=== PATIENT | female | born 1940 | race Caucasian/White ===

== ENCOUNTER 2020-09-24 15:26 | Inpatient (IN) | payer MEDICARE ==
[~2020-09-24] VITALS: Ht 167.6 cm; Wt 70.7 kg
[~2020-09-24 15:26] MED LIST: ASPIRIN E.C. 8181 MG PO; CELEBREX 1100 MG/CAP PO; CELEBREX 200MG200 MG PO; EFFER-K10 MEQ PO; NORVASC 5MG5 MG/TAB PO; PRILOSEC 20MG20 MG PO; TYLENOL ARTHRI650 M1 PO; ZOCOR 20MG20 MG PO; [UNRECOGNIZED DRUG - CODE] PO
[2020-09-24 16:05] LABS: BASO % 0.2 % (0.0-2.0); EOS # 0.2 (0.0-0.7); EOS % 1.2 % (0-4.0); GRAN # 10.1 (1.4-6.5); GRAN % 81.6 % (42.2-75.2); HEMATOCRIT 39.9 % (37.0-47.0); HEMOGLOBIN 13.5 g/dl (12.5-16.0); LYMPH # 1.7 (1.2-3.4); LYMPH % 13.5 % (20.0-51.0); MEAN CELL VOLUME 90 fl (80.0-100.0); MEAN CORPUSCULAR HEMOGLOBIN 31 pg (27.0-31.0); MEAN CORPUSCULAR HGB CONC 34 g/dl (33.0-37.0); MEAN PLATELET VOLUME 8.9 fl (7.4-10.4); MONO # 0.4 (0.1-0.6); PLATELET COUNT 315 K/mm3 (130-400); RED BLOOD COUNT 4.43 M/mm3 (4.10-5.30); REDCELL DISTRIBUTION WIDTH-CV 12.4 % (11.5-14.5)
[2020-09-24 16:20] LABS: ALANINE AMINOTRANSFERASE 78 U/L (4-34); ALBUMIN 4.2 gm/dL (3.5-5.0); ALKALINE PHOSPHATASE 125 U/L (50-136); ANION GAP 8 mmol/L (7-16); AST,SGOT 242 U/L (15-37); BLOOD UREA NITROGEN 18 mg/dL (7-17); CALCIUM 9.2 mg/dL (8.4-10.2); CARBON DIOXIDE 26 mmol/L (22-30); CHLORIDE 98 mmol/L (98-107); GLUCOSE 152 mg/dL (74-106); SODIUM 132 mmol/L (137-145); TOTAL PROTEIN 7.2 gm/dL (6.4-8.2)
[2020-09-24 16:39] LABS: TROPONIN-I < 0.012 ng/mL (0.000-0.035)
[2020-09-24] MEDS ORDERED: HCTZ12.5TAB PO (17:51)
[2020-09-24 18:12] LABS: LIPASE 27998 U/L (23-300)
[2020-09-24] MEDS ORDERED: NORCO 325 MG-51 TAB PO (18:30)
--- NOTE | 2020-09-24 20:00 | NUR ---
PATIENT ADMITED INTO ROOM 325 FORM ER WITH SON AT BEDSIDE. PATIENT WAS HAVING LOTS OF ABD PAIN IN ER AND WAS GIVEN LOTS OF PAIN MEDS. PATIENT IS CURRENTLY ORIENTED X2 BUT DISPLAYS SOME CONFUSION/FORGETFULNESS WHICH SON REPORTS IS NOT HER BASELINE. PATIENT SEEMS RESTLESS. NO C/O PAIN OR NAUSEA AT THIS TIME. DURING ADMISSION PATIENT KEPT FEELING LIKE SHE NEEDED TO "GET UP". NURSING ATTEMPTED TO GET PATIENT INTO BEDSIDE CHAIR BUT PATIENT WAS TO WEAK AND DIZZY TO GET UP. REPOSITIONED BACK INTO BED TO COMFORT. IV FLUIDS INFUSING VIA PUMP INTO RIGHT AC IV. LEFT AC IV TO INT. HEAD TO TOE ASSESSMENT COMPLETE. SCD'S APPLIED TO BLE. TELE ALSO APPLIED. ORIENTED TO ROOM. CALL LIGHT IN REACH.
--- NOTE | 2020-09-24 21:00 | NUR ---
PATIENT INCREASINGLY RESTLESS AND IS HAVING PAIN HOWEVER PATIENT IS CONFUSED. GAVE PRN IV ATIVAN PER HOSPITALIST. SON AT BEDSIDE. PATIENT TRYING TO TAKE OFF CLOTHES & GET OUT OF BED. RN AT BEDSIDE.
--- NOTE | 2020-09-24 22:00 | NUR ---
PATIENT RESTED QUIETLY FOR AN HOUR AND IS NOW TRYING TO GET OUT OF BED AGAIN AND IS VERY AGGITATED & CONFUSED. HOSPITALIST NOTIFIED. PRN IV ATIVAN GIVEN. WILL MONITOR.
--- NOTE | 2020-09-24 23:00 | NUR ---
PATIENT LESS RESTLESS BUT C/O PAIN. GAVE PRN IV TORADOL. PATIENT REPOSITIONED TO COMFORT. PATIENT REFUSED WARM BLANKET SHE IS HOT. ROOM TEMP TURNED DOWN. BED ALARM STILL ON. CALL LIGHT IN REACH.
[2020-09-25] VITALS (221 sets, daily range): BP systolic 85–123; BP diastolic 45–69; PULSE 79–101; TEMP 97.5–99.2; O2SAT 83–96
--- NOTE | 2020-09-25 03:48 | NUR ---
PATIENT IS VERY RESTLESS AGAIN AND STATES SHE ISN'T COMFORTABLE. PATIENT REPOSITIONED UP IN BED WITH 2 RN'S TO COMFORT. BED ALARM ON.
[2020-09-25 08:11] LABS: HEMATOCRIT 42.2 % (37.0-47.0); MEAN CELL VOLUME 93 fl (80.0-100.0); MEAN CORPUSCULAR HEMOGLOBIN 31 pg (27.0-31.0); MEAN CORPUSCULAR HGB CONC 33 g/dl (33.0-37.0); MEAN PLATELET VOLUME 9.2 fl (7.4-10.4); RED BLOOD COUNT 4.54 M/mm3 (4.10-5.30); REDCELL DISTRIBUTION WIDTH-CV 13.2 % (11.5-14.5)
[2020-09-25 08:14] LABS: PLATELET COUNT 197 K/mm3 (130-400)
[2020-09-25 08:38] LABS: ALANINE AMINOTRANSFERASE 572 U/L (4-34); ALBUMIN 2.7 gm/dL (3.5-5.0); ALKALINE PHOSPHATASE 81 U/L (50-136); ANION GAP 6 mmol/L (7-16); AST,SGOT > 750 U/L (15-37); BLOOD UREA NITROGEN 19 mg/dL (7-17); CALCIUM 6.9 mg/dL (8.4-10.2); CARBON DIOXIDE 21 mmol/L (22-30); CHLORIDE 105 mmol/L (98-107); CREATININE, serum 1.07 (0.52-1.25); GLUCOSE 83 mg/dL (74-106); POTASSIUM 3.6 mmol/L (3.4-5.0); SODIUM 132 mmol/L (137-145); TOTAL PROTEIN 5.2 gm/dL (6.4-8.2)
[2020-09-25 08:59] LABS: BAND 45 % (0-10); LYMPHOCYTE 6 % (20.0-51.0); METAMYELOCYTE 4 % (0-0); NEUTROPHILS 42 % (42.0-75.2)
[2020-09-25 09:00] LABS: PLATELET ESTIMATE NORMAL (NORMAL)
[2020-09-25 09:23] LABS: LIPASE 8941 U/L (23-300)
--- NOTE | 2020-09-25 09:30 | NUR ---
Patients BP has dropped. Dr Ruano at bedside. Held BP medications and norco. Explained to patient why we are not giving them at this time. She verbalized understanding. Her BP was 88/55 on the left side and 102/64 on the right side. Her son is at bedside. Patient was very confused at the start of the shift but is much better now. She stated her pain is about a 3 or 4 but tolerable if we don't move her. Finished her bags of potassium this morning. She is getting a PICC line today. She had 2 IV's at the start of the shift but one was leaking and was discontinued. Grace secured to leg, urine output is low and her urine is concentrated. No other changes at this time. Call light within reach.
--- NOTE | 2020-09-25 11:24 | NUR ---
First visit from the filling technician. No needs right now.
--- NOTE | 2020-09-25 14:30 | NUR ---
After first bolus of IVF's, her BP did not change much. Second bolus ordered. Giving now a little late due to patient getting PICC line placed. Patient continues to be alert and oriented. She stated she feels like she is getting worse. Dr Ruano notified. She also stated she feels like she can't see well, has some blurred vision and she is very tired. Explained the infection and her BP might be causing her to feel so tired. She stated she is a little dizzy but can't really tell laying down. No other changes at this time. Call light within reach. Her son is at bedside.
--- NOTE | 2020-09-25 16:00 | NUR ---
Changed patients oxymask to nasal cannula so she could eat a little jello. Her oxygen dropped to mid 80%, placed her back on the oxymask and her oxygen would only go up to 88%, increased oxygen to 6l/min from 4.5 and she was at 90%. Notified hospitalist. Laura the PA is going to come see the patient. Sonia the PA is also entering new orders for patient. Called radiology for chest x-ray, notified RT of order for ABG and EKG. Explained to patient what is going on and why we are dong these new orders. No other changes at this time. Call light within reach.
--- NOTE | 2020-09-25 16:09 | NUR ---
Safety Administrator attempted to complete intake twice, once RT was with the patient and another PA student with the patient. Will attempt at a later time.
[2020-09-25 16:30] LABS: ARTERIAL BLD GAS O2 SATURATION 89.5 % (92-100); ARTERIAL BLD GAS TCO2 CT 17.5; ARTERIAL BLOOD GAS BASE EXCESS -7.7 (-2-2); ARTERIAL BLOOD GAS HCO3 16.6 meq/L (22-26); ARTERIAL BLOOD GAS PCO2 30.4 mmHg (35-45); ARTERIAL BLOOD GAS PO2 55.7 mmHg (80-100); ARTERIAL BLOOD GAS pH 7.35 (7.35-7.45)
[2020-09-25 16:51] LABS: ALBUMIN 2.4 gm/dL (3.5-5.0); BILIRUBIN,TOTAL 1.5 mg/dL (0.0-1.0); CREATININE, serum 1.34 (0.52-1.25); POTASSIUM 4.5 mmol/L (3.4-5.0); TOTAL PROTEIN 4.8 gm/dL (6.4-8.2)
[2020-09-25 17:21] LABS: CHOLESTEROL RISK RATIO 2.7
--- NOTE | 2020-09-25 18:00 | NUR ---
Transferred patient to ICU. She was on 10l/min with the oxymask by the time we go her down there. Her urine output had decreased to almost nothing. Dr Ruano aware of this. Her son was still here when we moved her. She went to ICU around 1735. Report called to Marta Hess RN. Assisted with getting patient into the ICU bed. All belongings sent with patient. Her chart was also sent down. No other changes at this time.
--- NOTE | 2020-09-25 18:28 | NUR ---
Patient to ICU room 3 by bed from the surgical floor.Nurse oriented patient to location, room and call light. Son at the bedside. A&Ox4. VSS. IV CDI, fluid infusing. 8L O2 Oxymask. Graec dependent drainage. Assessment complete. No further needs expressed from the patient. Call light within reach
--- NOTE | 2020-09-25 18:36 | NUR ---
Patient in bed, HOB elevated on VSS on Airvo and tolerating well. Denies pain and discomfort. Son at the bedside assisting with feeding ice chips. PICC CELI CDI, fluids infusing. No further needs expressed from the patient. Call light within reach
[2020-09-25 19:01] LABS: HEMATOCRIT 39.7 % (37.0-47.0); HEMOGLOBIN 12.9 g/dl (12.5-16.0); MEAN CELL VOLUME 93 fl (80.0-100.0); MEAN CORPUSCULAR HEMOGLOBIN 30 pg (27.0-31.0); MEAN CORPUSCULAR HGB CONC 33 g/dl (33.0-37.0); MEAN PLATELET VOLUME 9.4 fl (7.4-10.4); PLATELET COUNT 157 K/mm3 (130-400); RED BLOOD COUNT 4.28 M/mm3 (4.10-5.30); REDCELL DISTRIBUTION WIDTH-CV 13.4 % (11.5-14.5)
[2020-09-26] VITALS (894 sets, daily range): BP systolic 97–146; BP diastolic 60–86; PULSE 104–151; TEMP 97.6–99.1; O2SAT 71–100
--- NOTE | 2020-09-26 01:56 | NUR ---
CALLED [facility] AND SPOKE TO NURSE CONCERNING PT HR ELEVATED AND R ARM PAIN- POSSIBLY RELATED. OKAY TO GIVE TORADOL DT NO EFFECT ON BP. WILL CALL BACK IF HR CONTINUES TO TREND UP. ALSO NOTED LOW UOP. NO INTERVENTION DT PLEURAL EFFUSION. NOTED AT 20 ML/HR WILL CONTINUE TO MONITOR.
[2020-09-26 03:30] LABS: HEMOGLOBIN 12.1 g/dl (12.5-16.0); MEAN CELL VOLUME 92 fl (80.0-100.0); MEAN CORPUSCULAR HEMOGLOBIN 31 pg (27.0-31.0); MEAN CORPUSCULAR HGB CONC 33 g/dl (33.0-37.0); MEAN PLATELET VOLUME 9.8 fl (7.4-10.4); PLATELET COUNT 145 K/mm3 (130-400); RED BLOOD COUNT 3.93 M/mm3 (4.10-5.30); REDCELL DISTRIBUTION WIDTH-CV 13.7 % (11.5-14.5)
[2020-09-26 03:41] LABS: ALBUMIN 2.3 gm/dL (3.5-5.0); BILIRUBIN,TOTAL 1.1 mg/dL (0.0-1.0); CREATININE, serum 1.64 (0.52-1.25); POTASSIUM 4.6 mmol/L (3.4-5.0); TOTAL PROTEIN 4.8 gm/dL (6.4-8.2)
[2020-09-26 03:46] LABS: CALCIUM 5.8 mg/dL (8.4-10.2)
[2020-09-26 04:30] LABS: BAND 65 % (0-10); LYMPHOCYTE 5 % (20.0-51.0); METAMYELOCYTE 8 % (0-0); NEUTROPHILS 18 % (42.0-75.2)
[2020-09-26 04:31] LABS: PLATELET ESTIMATE NORMAL (NORMAL)
[2020-09-26 04:33] LABS: HEMATOCRIT 36.3 % (37.0-47.0)
--- NOTE | 2020-09-26 10:40 | NUR ---
Patient taken to CT this AM at 0930 with the assistance of RT and this nurse. Patient placed on non-rebreather at 20L. Noted patient to have a large right pleural effusion per sap portal consultant. Dr. Martinez made aware. @ [address] Martinez in a Right Thorcensis. Fluid recieved from [facility] greyish/brown in color; pus like sedimet. Dr. Martinez only able to get 200 cc of fluid. Call placed to Dr. Goetz about a need for chest tube. Specimens sent to lab as per order. Per Dr. Martinez; consult called to Dr. Mike. Patient given AM cares. Patient remains on AirVo. No other needs at this time
[2020-09-26 10:53] LABS: PATHOLOGY DIFF REVIEW OK
[2020-09-26 11:09] LABS: ARTERIAL BLD GAS O2 SATURATION 93.6 % (92-100); ARTERIAL BLD GAS TCO2 CT 16.4; ARTERIAL BLOOD GAS BASE EXCESS -7.6 (-2-2); ARTERIAL BLOOD GAS HCO3 15.6 meq/L (22-26); ARTERIAL BLOOD GAS PCO2 25.9 mmHg (35-45); ARTERIAL BLOOD GAS PO2 68.2 mmHg (80-100)
[2020-09-26 11:18] LABS: COLLECTION METHOD CLEAN CATCH
[2020-09-26 11:27] LABS: GLUCOSE,PLEURAL FLUID 45 mg/dL; TOTAL PROTEIN,PLEURAL FLUID 3.2 gm/dL
[2020-09-26 11:32] LABS: PLEURAL FLUID RBC 4000 /mm3 (0-0); PLEURAL FLUID WBC 2110 /mm3
[2020-09-26 11:33] LABS: PLEURAL FLUID APPEARANCE CLOUDY; PLEURAL FLUID COLOR BROWN
[2020-09-26 11:36] LABS: AMORPHOUS CRYSTAL Present /uL; MUCOUS Present /lpf; PH 5 (5-8); SQUAMOUS EPITHELIAL 0-2 /hpf; URINE APPEARANCE Cloudy; URINE BACTERIA Occasional /hpf; URINE BILIRUBIN Negative (NEGATIVE); URINE BLOOD 2+ (NEGATIVE); URINE COLOR Amber; URINE GLUCOSE Negative (NEGATIVE); URINE KETONE Negative (NEGATIVE); URINE LEUKOCYTE ESTERASE Negative (NEGATIVE); URINE NITRATE Negative (NEGATIVE); URINE PROTEIN(semi-quant) 1+ (NEGATIVE); URINE RBC 20-50 /hpf; URINE UROBILINOGEN Negative (NEGATIVE)
--- NOTE | 2020-09-26 11:39 | NUR ---
Plan still unknown: SW met with patient in room with son Syed Whitfield [phone]. Patient gave permission to talk about care with son. Patient reports that she resides in [place]. Patient shares they have a POA and can provide a copy if needed. Patient reports that she resides in her own home with her Alfonso. [facility] is the next contact for emr purpose . PCP is Dr. Vicky Green and she uses [facility] for medications. Patient denies having any issues obtaining meds. Patient shares that she has a cane PRN but does not have any concerns with walking, O2, or heart related issues. Patient is not opposed to rehab and reports that she is normally fully capable of her own care. Educated patient of support options and support towards DC.
--- NOTE | 2020-09-26 13:22 | NUR ---
Patient left the floor for the OR at this time. She is understanding of the risk and benifits of surgery and asked that her son sign the consent. Patient understands that there is a high chance she will return on the ventilator. Allowed family in to see patient with permission of ICU Luncheonette Operator. Son will stay in ICU waiting room. is returning home with family.
--- NOTE | 2020-09-26 16:38 | NUR ---
Pt to ICU from OR. ET tube, OG and aviles in place. PT is sedated. PT is hooked up to ICU monitoring and switched to ICU ventilator by RT. PT has an art line which shows MAPs in the 40s. Levophed is started. Levophed is bumped to 1.0 mcg/kg/min. Dr. Martinez bedside and advises to start vasopressin. PTs HR is 130-140s in afib. Amiodorone 1mg/min is started. Dr. Garcia with cardiology is consulted. PT is given an LR bolus over two hours as ordered per Dr. Martinez.
[2020-09-26 18:05] LABS: ARTERIAL BLD GAS O2 SATURATION 95.1 % (92-100); ARTERIAL BLD GAS TCO2 CT 12.8; ARTERIAL BLOOD GAS BASE EXCESS -13.7 (-2-2); ARTERIAL BLOOD GAS PCO2 27.7 mmHg (35-45); ARTERIAL BLOOD GAS PO2 84.1 mmHg (80-100); ARTERIAL BLOOD GAS pH 7.25 (7.35-7.45)
--- NOTE | 2020-09-26 18:30 | NUR ---
PT is currently lightly sedated with a RASS score of -1. SonSyed is bedside. PT is showing AFIB on the monitor. MAPs are maintaining above 65 with levophed running only. PT remains on ICU monitor. Will report to oncoming RN.
--- NOTE | 2020-09-26 19:32 | NUR ---
REPORT GIVEN TO PAMELA MELO.
[2020-09-27] VITALS (365 sets, daily range): BP systolic 97–145; BP diastolic 51–89; PULSE 59–123; TEMP 97.5–99.4; O2SAT 92–100
[2020-09-27 00:03] LABS: BODY FLUID PH (AMS) 8 (())
[2020-09-27 05:41] LABS: ARTERIAL BLD GAS O2 SATURATION 98.3 % (92-100); ARTERIAL BLD GAS TCO2 CT 17.3; ARTERIAL BLOOD GAS BASE EXCESS -6.9 (-2-2); ARTERIAL BLOOD GAS HCO3 16.5 meq/L (22-26); ARTERIAL BLOOD GAS PCO2 27.2 mmHg (35-45); ARTERIAL BLOOD GAS PO2 106.7 mmHg (80-100)
[2020-09-27 05:58] LABS: HEMOGLOBIN 10.4 g/dl (12.5-16.0); MEAN CELL VOLUME 90 fl (80.0-100.0); MEAN CORPUSCULAR HEMOGLOBIN 30 pg (27.0-31.0); MEAN CORPUSCULAR HGB CONC 34 g/dl (33.0-37.0); MEAN PLATELET VOLUME 10.3 fl (7.4-10.4); PLATELET COUNT 149 K/mm3 (130-400); RED BLOOD COUNT 3.44 M/mm3 (4.10-5.30); REDCELL DISTRIBUTION WIDTH-CV 13.4 % (11.5-14.5)
[2020-09-27 05:59] LABS: HEMATOCRIT 30.8 % (37.0-47.0)
--- NOTE | 2020-09-27 06:01 | NUR ---
PT HAS NOT BEEN INTUBATED FOR MORE THAN 24 HOURS, THEREFORE NO WEAN TRIAL TO BE DONE. PT ON DOCUMENTED SETTINGS
--- NOTE | 2020-09-27 06:02 | NUR ---
PATIENT BECOMES AWAKE EASILY, HEART RATE GOES BACK INTO 140s, patient begins to move about. sedation placed back on at 40 mcq/kg /min propofolol
[2020-09-27 06:06] LABS: BAND 29 % (0-10); EOSINOPHIL 1 % (0-4); LYMPHOCYTE 5 % (20.0-51.0); METAMYELOCYTE 1 % (0-0); NEUTROPHILS 60 % (42.0-75.2); PLATELET ESTIMATE NORMAL (NORMAL)
[2020-09-27 06:09] LABS: ALBUMIN 1.9 gm/dL (3.5-5.0); BILIRUBIN,TOTAL 0.6 mg/dL (0.0-1.0); CREATININE, serum 1.26 (0.52-1.25); MAGNESIUM 1.1 mg/dL (1.6-2.3); POTASSIUM 3.4 mmol/L (3.4-5.0); TOTAL PROTEIN 4.1 gm/dL (6.4-8.2)
[2020-09-27 06:14] LABS: CALCIUM 5.9 mg/dL (8.4-10.2)
--- NOTE | 2020-09-27 17:41 | NUR ---
PT is on sedation vacation. PT opens eyes spontaneously. Pt shakes head no to pain and moves her head to find son Syed. Will titrate sedation as needed if patient becomes uncomfortable.
--- NOTE | 2020-09-27 19:06 | NUR ---
PT REPORT GIVEN TO PAMELA MELO.
[2020-09-27 19:18] LABS: ARTERIAL BLD GAS O2 SATURATION 97.7 % (92-100); ARTERIAL BLD GAS TCO2 CT 16.4; ARTERIAL BLOOD GAS BASE EXCESS -7.8 (-2-2); ARTERIAL BLOOD GAS HCO3 15.6 meq/L (22-26); ARTERIAL BLOOD GAS PCO2 25.8 mmHg (35-45); ARTERIAL BLOOD GAS PO2 96.2 mmHg (80-100)
[2020-09-28] VITALS (22 sets, daily range): BP systolic 86–145; BP diastolic 44–81; PULSE 78–136; TEMP 98.3–100.6; O2SAT 93
[2020-09-28 05:13] LABS: MEAN CELL VOLUME 89 fl (80.0-100.0); MEAN CORPUSCULAR HGB CONC 35 g/dl (33.0-37.0); MEAN PLATELET VOLUME 9.8 fl (7.4-10.4); PLATELET COUNT 103 K/mm3 (130-400); REDCELL DISTRIBUTION WIDTH-CV 13.6 % (11.5-14.5)
[2020-09-28 05:13] LABS: ARTERIAL BLD GAS O2 SATURATION 98.3 % (92-100); ARTERIAL BLD GAS TCO2 CT 18.2; ARTERIAL BLOOD GAS BASE EXCESS -5.4 (-2-2); ARTERIAL BLOOD GAS HCO3 17.4 meq/L (22-26); ARTERIAL BLOOD GAS PCO2 25.7 mmHg (35-45); ARTERIAL BLOOD GAS PO2 108.7 mmHg (80-100); ARTERIAL BLOOD GAS pH 7.45 (7.35-7.45)
[2020-09-28 05:16] LABS: HEMATOCRIT 25.8 % (37.0-47.0); HEMOGLOBIN 8.9 g/dl (12.5-16.0); MEAN CORPUSCULAR HEMOGLOBIN 31 pg (27.0-31.0)
[2020-09-28 05:22] LABS: ALBUMIN 1.8 gm/dL (3.5-5.0); BILIRUBIN,TOTAL 0.7 mg/dL (0.0-1.0); CALCIUM 6.3 mg/dL (8.4-10.2); CREATININE, serum 1.38 (0.52-1.25); MAGNESIUM 2.1 mg/dL (1.6-2.3); POTASSIUM 3.9 mmol/L (3.4-5.0); TOTAL PROTEIN 3.9 gm/dL (6.4-8.2)
[2020-09-28 05:34] LABS: BAND 22 % (0-10); LYMPHOCYTE 7 % (20.0-51.0); NEUTROPHILS 66 % (42.0-75.2); PLATELET ESTIMATE DECREASED (NORMAL)
--- NOTE | 2020-09-28 07:43 | NUR ---
RECEIVED REPORT FROM PAMELA MELO. PATIENT RESTING IN BED ON THE VENTILATOR WITH EYES CLOSED. POOL CATHETER IN PLACE, PATENT, DRAINING TO GRAVITY. PICC LINE IN PLACE. SEE GTT TITRATION FLOWSHEET. VSS AT THIS TIME
--- NOTE | 2020-09-28 11:53 | NUR ---
CALLED DR. SHETH REGARDING PATIENT CONVERTING BACK INTO AFIB RVR. ORDERS RECEIVED.
[2020-09-28 11:58] LABS: URIC ACID 3.1 mg/dL (2.5-6.2)
--- NOTE | 2020-09-28 14:10 | NUR ---
UPDATED DR. SHETH ABOUT CARDIZEM PLACED ON STANDBY WHEN PATIENT WAS HYPOTENSIVE. SAID IT WAS OKAY TO LEAVE GTT ON STANDBY
--- NOTE | 2020-09-28 17:07 | NUR ---
NOT ON AN OFFICIAL SEDATION VACATION BECAUSE ALL GTT'S ARE AT BASE DASE.
[2020-09-28 20:20] LABS: CALCIUM 6.8 mg/dL (8.4-10.2); CREATININE, serum 1.31 (0.52-1.25); POTASSIUM 3.8 mmol/L (3.4-5.0)
[2020-09-29] VITALS (675 sets, daily range): BP systolic 95–126; BP diastolic 54–78; PULSE 70–116; TEMP 98.3–100.6; O2SAT 73–99
[2020-09-29 05:27] LABS: MEAN CELL VOLUME 88 fl (80.0-100.0); MEAN CORPUSCULAR HGB CONC 34 g/dl (33.0-37.0); MEAN PLATELET VOLUME 9.6 fl (7.4-10.4); PLATELET COUNT 124 K/mm3 (130-400); RED BLOOD COUNT 2.93 M/mm3 (4.10-5.30); REDCELL DISTRIBUTION WIDTH-CV 13.6 % (11.5-14.5)
[2020-09-29 05:31] LABS: HEMATOCRIT 25.9 % (37.0-47.0); HEMOGLOBIN 8.7 g/dl (12.5-16.0); MEAN CORPUSCULAR HEMOGLOBIN 30 pg (27.0-31.0)
[2020-09-29 05:38] LABS: ALBUMIN 1.8 gm/dL (3.5-5.0); BILIRUBIN,TOTAL 0.8 mg/dL (0.0-1.0); CALCIUM 6.9 mg/dL (8.4-10.2); CREATININE, serum 1.4 (0.52-1.25); POTASSIUM 4.2 mmol/L (3.4-5.0)
[2020-09-29 05:43] LABS: BAND 24 % (0-10); LYMPHOCYTE 7 % (20.0-51.0); NEUTROPHILS 65 % (42.0-75.2); PLATELET ESTIMATE DECREASED (NORMAL)
--- NOTE | 2020-09-29 06:30 | NUR ---
PATIENT RESTING COMFORTABLE HEART RATE CURRENTLY IN 90s sinus rthyum.
--- NOTE | 2020-09-29 07:24 | NUR ---
RECEIVED REPORT FROM PAMELA MELO. PATIENT RESTING COMFORTABLY ON VENTILATOR. POOL CATHETER IN PLACE, DRAINING TO GRAVITY. CELI PICC IN PLACE. VSS AT THIS TIME.
--- NOTE | 2020-09-29 09:00 | NUR ---
SPOKE WITH DR CARR ABOUT PT AM ABG ORDERED. DR CARR SAID TO CANCEL ABG UNLESS PT BECOMES DISTRESSED AND DECOMPENSATES.
--- NOTE | 2020-09-29 17:24 | NUR ---
PATIENT ON MINIMAL SEDATION TO HANDLE FOR PATIENT'S BASELINE.
[2020-09-30] VITALS (664 sets, daily range): BP systolic 85–139; BP diastolic 53–82; PULSE 74–142; TEMP 98.2–99.9; O2SAT 83–100
[2020-09-30 04:34] LABS: ALBUMIN 1.9 gm/dL (3.5-5.0); BILIRUBIN,TOTAL 0.5 mg/dL (0.0-1.0); CALCIUM 7.2 mg/dL (8.4-10.2); CREATININE, serum 1.53 (0.52-1.25); MAGNESIUM 1.9 mg/dL (1.6-2.3); POTASSIUM 4.8 mmol/L (3.4-5.0); TOTAL PROTEIN 4.1 gm/dL (6.4-8.2)
[2020-09-30 04:41] LABS: PRE ALBUMIN 4.3 mg/dL (17.6-36.0)
--- NOTE | 2020-09-30 06:02 | NUR ---
PATIENT HAS BEEN ON LOW DOSES ALL SHIFT/ CAUSE OF HYPOTENSION/ AFIB
--- NOTE | 2020-09-30 07:36 | NUR ---
RECEIVED REPORT FROM PAMELA MELO. PATIENT'S BP IS LOW BUT REMAINING VITALS ARE STABLE. CURRENTLY ON MINIMAL SEDATION. IN [place]. HAVING LOW OUTPUTS AND WEEPING FROM KAYA. WILL CONSULT WITH DR. JACKSON TODAY REGARDING. SEE GTT TITRATION FLOWSHEET.
--- NOTE | 2020-09-30 08:38 | NUR ---
Dr Clark at bedside. Gave report about events from last night including Afib RVR and hypotension, third spacing in extremities. Orders received and will advise Dr. Ruano.
--- NOTE | 2020-09-30 09:46 | NUR ---
CALLED DR. CONTRERAS AND LEFT A MESSAGE REGARDING PATIENT STATUS. WILL UPDATE WHEN AT BEDSIDE.
--- NOTE | 2020-09-30 10:38 | NUR ---
DR. CONTRERAS AT BEDSIDE. UPDATE GIVEN AND AGREEABLE TO NEUROLOGY CONSULT. ORDERS RECEIVED. WILL TALK TO SON ABOUT OPTIONS.
--- NOTE | 2020-09-30 16:48 | NUR ---
DR. NEWMAN AT BEDSIDE FOR CONSULT. UPDATE GIVEN. ORDERS RECEIVED.
--- NOTE | 2020-09-30 17:11 | NUR ---
PATIENT ON MINIMAL SEDATION WHICH IS COMFORTABLE FOR PATIENT.
--- NOTE | 2020-09-30 22:41 | NUR ---
during assessment patient can move left arm andis approaching her face, gazes to the left. body movement with hearing staff's voice
[2020-10-01] VITALS (680 sets, daily range): BP systolic 120–178; BP diastolic 65–788; PULSE 75–102; TEMP 99–100.2; O2SAT 63–100
[2020-10-01 04:33] LABS: MEAN CELL VOLUME 92 fl (80.0-100.0); MEAN CORPUSCULAR HGB CONC 33 g/dl (33.0-37.0); MEAN PLATELET VOLUME 9.7 fl (7.4-10.4); PLATELET COUNT 152 K/mm3 (130-400); RED BLOOD COUNT 2.72 M/mm3 (4.10-5.30); REDCELL DISTRIBUTION WIDTH-CV 13.9 % (11.5-14.5)
[2020-10-01 04:35] LABS: HEMATOCRIT 24.9 % (37.0-47.0); HEMOGLOBIN 8.3 g/dl (12.5-16.0); MEAN CORPUSCULAR HEMOGLOBIN 31 pg (27.0-31.0)
[2020-10-01 04:45] LABS: ALBUMIN 2.4 gm/dL (3.5-5.0); BILIRUBIN,TOTAL 0.9 mg/dL (0.0-1.0); CALCIUM 7.4 mg/dL (8.4-10.2); CREATININE, serum 1.35 (0.52-1.25); POTASSIUM 5.4 mmol/L (3.4-5.0); TOTAL PROTEIN 4.6 gm/dL (6.4-8.2)
[2020-10-01 05:12] LABS: ARTERIAL BLD GAS TCO2 CT 19.7; ARTERIAL BLOOD GAS BASE EXCESS -5.1 (-2-2); ARTERIAL BLOOD GAS HCO3 18.7 meq/L (22-26); ARTERIAL BLOOD GAS PCO2 29.7 mmHg (35-45); ARTERIAL BLOOD GAS PO2 56.1 mmHg (80-100); ARTERIAL BLOOD GAS pH 7.42 (7.35-7.45)
[2020-10-01 05:17] LABS: BAND 9 % (0-10); LYMPHOCYTE 3 % (20.0-51.0); METAMYELOCYTE 1 % (0-0); NEUTROPHILS 84 % (42.0-75.2); PLATELET ESTIMATE NORMAL (NORMAL)
[2020-10-01 05:18] LABS: BURR CELLS 1+; SCHISTOCYTES 1+
--- NOTE | 2020-10-01 10:50 | NUR ---
SW attended rounds with physician and team. Patient currently on vent, possible MRI tomorrow per physician for further clinica review. Patient's family present during rounds RSOALVA will contiue to follow.
--- NOTE | 2020-10-01 12:11 | NUR ---
SPOKE WITH RN ABOUT EEG FOR PATIENT, UPON SEEING THE PATIENT, THEY ARE AGGITATED AND MOVING THEIR HEAD BACK AND FORTH UNABLE TO FOLLOW COMMANDS. PATIENT WILL NOT BE ABLE TO GET EEG IF THEY ARE AGGITATED AND CONSTANTLY MOVING HEAD BACK AND FORTH AND UNABLE TO FOLLOW COMMANDS TO HOLD STILL. WOULD NOT RESULT IN A GOOD TEST. RN AND I AGREED THAT WHEN PATIENT IS ABLE TO FOLLOW COMMANDS BETTER AND NOT SO AGGITATED TO LET ME KNOW AND WE CAN PROCEED WITH TEST.
--- NOTE | 2020-10-01 21:00 | NUR ---
Assessment complete and charted. Patient had vomiting episode during repositioning. OG residuals checked. Patient has 340ml of residual. Tube feedings placed on hold at 2024. Will recheck residual in 2 hours. Patient awake and restless. Appears to be grimacing and shaking head back and forth. Sedation increased as ordered.
[2020-10-02] VITALS (604 sets, daily range): BP systolic 81–131; BP diastolic 52–72; PULSE 70–93; TEMP 97.6–99.2; O2SAT 71–100
--- NOTE | 2020-10-02 02:21 | NUR ---
OG residuals continue to be elevated. Tube feeds on hold. Currently at 290ml of residual.
--- NOTE | 2020-10-02 05:25 | NUR ---
Assessment complete and charted. Residuals increased to 360. Esperanza HUERTA notified and orders for KUB added.
[2020-10-02 05:50] LABS: ARTERIAL BLD GAS O2 SATURATION 92.6 % (92-100); ARTERIAL BLD GAS TCO2 CT 18.9; ARTERIAL BLOOD GAS BASE EXCESS -4.8 (-2-2); ARTERIAL BLOOD GAS HCO3 18.2 meq/L (22-26); ARTERIAL BLOOD GAS PCO2 25.7 mmHg (35-45); ARTERIAL BLOOD GAS PO2 61.6 mmHg (80-100); ARTERIAL BLOOD GAS pH 7.47 (7.35-7.45)
[2020-10-02 06:17] LABS: MEAN CELL VOLUME 91 fl (80.0-100.0); MEAN CORPUSCULAR HGB CONC 34 g/dl (33.0-37.0); MEAN PLATELET VOLUME 9.6 fl (7.4-10.4); RED BLOOD COUNT 2.48 M/mm3 (4.10-5.30); REDCELL DISTRIBUTION WIDTH-CV 13.8 % (11.5-14.5)
[2020-10-02 06:21] LABS: HEMATOCRIT 22.5 % (37.0-47.0); HEMOGLOBIN 7.6 g/dl (12.5-16.0); MEAN CORPUSCULAR HEMOGLOBIN 31 pg (27.0-31.0); PLATELET COUNT 270 K/mm3 (130-400)
[2020-10-02 06:25] LABS: ALBUMIN 2.5 gm/dL (3.5-5.0); BILIRUBIN,TOTAL 0.8 mg/dL (0.0-1.0); CALCIUM 7.8 mg/dL (8.4-10.2); CREATININE, serum 1.24 (0.52-1.25); MAGNESIUM 1.6 mg/dL (1.6-2.3); POTASSIUM 4.4 mmol/L (3.4-5.0); TOTAL PROTEIN 4.9 gm/dL (6.4-8.2)
--- NOTE | 2020-10-02 06:31 | NUR ---
Patient had increased residuals throughout entire shift. Feedings stopped earlier in evening. KUB ordered this AM by Esperanza HUERTA. Arms continue to wheep clear fluid. Patient has hypoactive bowels. Repositioned Q2H during night.
[2020-10-02 06:51] LABS: BAND 1 % (0-10); BASOPHIL 1 % (0-2); LYMPHOCYTE 3 % (20.0-51.0); METAMYELOCYTE 2 % (0-0); NEUTROPHILS 88 % (42.0-75.2)
[2020-10-02 06:54] LABS: OVALOCYTES 1+; PLATELET ESTIMATE NORMAL (NORMAL)
[2020-10-02 06:55] LABS: BURR CELLS 1+
--- NOTE | 2020-10-02 07:20 | NUR ---
Report given to PAMELA Saez
--- NOTE | 2020-10-02 08:54 | NUR ---
PT assessed. PT is moving head back and forth grimacing. Pain medication titrated appropriately per order. PT risidual checked. 550 cc obtained through OG tube with syringe removal technique. Dr. Rios notified and will be in to see patient. Dr. Melgoza notified. Orders received to place OG on low intermittent suction, keep tubes feeds on hold and to not replace the contents removed.
--- NOTE | 2020-10-02 18:53 | NUR ---
Dr. Goetz called and updated on patients KASANDRA drain and chest tube output. Dr. Goetz will be in to see patient in am.
--- NOTE | 2020-10-02 19:12 | NUR ---
Report given to PAMELA Amin.
--- NOTE | 2020-10-02 19:30 | NUR ---
Received report from PAMELA Rizzo. Patient resting quietly in bed. Tolerating ventilator well; all vitals within normal limits. Pumps and vent settings verified at bedside. Bed in lowest position, all alarms on. Call light within reach.
--- NOTE | 2020-10-02 20:30 | NUR ---
Assessment complete and charted. Patient RIJ TLC leaking bloody from site. Dressing changed and gauze placed over dressing to apply slight pressure to assist with bleeding. Patient repositioned. Awakens to stimuli but quickly falls back asleep.
[2020-10-03] VITALS (753 sets, daily range): BP systolic 72–132; BP diastolic 44–82; PULSE 63–85; TEMP 98.2–101.3; O2SAT 69–100
--- NOTE | 2020-10-03 05:00 | NUR ---
Sedation vacation not preformed. Patient awake and grimacing when stimulated by touch. Does not follow commands.
[2020-10-03 05:56] LABS: ARTERIAL BLOOD GAS PCO2 24.6 mmHg (35-45); ARTERIAL BLOOD GAS PO2 77.2 mmHg (80-100); ARTERIAL BLOOD GAS pH 7.44 (7.35-7.45)
[2020-10-03 05:57] LABS: ARTERIAL BLD GAS O2 SATURATION 94.6 % (92-100); ARTERIAL BLOOD GAS BASE EXCESS -6.7 (-2-2); ARTERIAL BLOOD GAS HCO3 16.6 meq/L (22-26)
[2020-10-03 05:57] LABS: MEAN CELL VOLUME 91 fl (80.0-100.0); MEAN CORPUSCULAR HGB CONC 34 g/dl (33.0-37.0); MEAN PLATELET VOLUME 9.9 fl (7.4-10.4); PLATELET COUNT 352 K/mm3 (130-400); RED BLOOD COUNT 2.17 M/mm3 (4.10-5.30); REDCELL DISTRIBUTION WIDTH-CV 13.6 % (11.5-14.5)
--- NOTE | 2020-10-03 06:01 | NUR ---
Patient hypotensive during night. Spoke with Dr. Franklin from [facility] and received orders for neosynephrine. Neosynephrine currently infusing-patient BP 100s systolic. Patient oral care preformed Q2H as ordered. Patient lips bloody/dry. Mouth moisturizer applied with each oral care. Turned Q2H. Continues on sedation this AM.
[2020-10-03 06:09] LABS: ALBUMIN 2.8 gm/dL (3.5-5.0); BILIRUBIN,TOTAL 1.3 mg/dL (0.0-1.0); CALCIUM 7.5 mg/dL (8.4-10.2); CREATININE, serum 1.34 (0.52-1.25); POTASSIUM 3.3 mmol/L (3.4-5.0)
[2020-10-03 06:15] LABS: HEMATOCRIT 19.7 % (37.0-47.0); HEMOGLOBIN 6.6 g/dl (12.5-16.0); MEAN CORPUSCULAR HEMOGLOBIN 30 pg (27.0-31.0)
[2020-10-03 06:43] LABS: C-REACTIVE PROTEIN 28.3 mg/dL (0.0-0.9)
[2020-10-03 07:09] LABS: BAND 23 % (0-10); LYMPHOCYTE 4 % (20.0-51.0); NEUTROPHILS 70 % (42.0-75.2); PLATELET ESTIMATE NORMAL (NORMAL)
--- NOTE | 2020-10-03 07:47 | NUR ---
Report given to PAMELA Rizzo
--- NOTE | 2020-10-03 07:48 | NUR ---
Report given to PAMELA Rizzo
--- NOTE | 2020-10-03 09:40 | NUR ---
SW update, spoke with son about obtaining the DPOA PPW and Living will for records. SW met with son in the room. Gave son instructions to leave at java front end web developer in ICU if can not get a hold of the SW, or give to nurse for copy. Son indicated that he will give a copy of the living will also. Awaiting for PPW.
--- NOTE | 2020-10-03 11:09 | NUR ---
Vancomycin Follow-up Pharmacy Note Current regimen: Vancomycin 1 gm IV q12h Vancomycin trough: 20.26 Adjustments: Will decrease to Vancomycin 750 mg IV q12h. Pharmacy will continue to closely monitor and check a trough on 10/05/20.
[2020-10-03 11:14] LABS: ALANINE AMINOTRANSFERASE 14 U/L (4-34); ALBUMIN 2.7 gm/dL (3.5-5.0); ALKALINE PHOSPHATASE 53 U/L (50-136); ANION GAP 9 mmol/L (7-16); AST,SGOT 34 U/L (15-37); BILIRUBIN,TOTAL 1.3 mg/dL (0.0-1.0); BLOOD UREA NITROGEN 28 mg/dL (7-17); CALCIUM 7.6 mg/dL (8.4-10.2); CARBON DIOXIDE 18 mmol/L (22-30); CHLORIDE 104 mmol/L (98-107); CREATININE, serum 1.37 (0.52-1.25); GLUCOSE 88 mg/dL (74-106); MAGNESIUM 1.5 mg/dL (1.6-2.3); PHOSPHOROUS 4.7 mg/dL (2.5-4.5); POTASSIUM 4.1 mmol/L (3.4-5.0); SODIUM 130 mmol/L (137-145); TOTAL PROTEIN 4.9 gm/dL (6.4-8.2); TRIGLYCERIDE 81 mg/dL
[2020-10-03 11:15] LABS: CHOLESTEROL < 50 mg/dL (120-200)
[2020-10-03 11:21] LABS: PRE ALBUMIN 4.8 mg/dL (17.6-36.0)
--- NOTE | 2020-10-03 12:00 | NUR ---
DR. ROJAS HAS DISCUSSION WITH AND SON. THEY DECIDE TO PROCEED WITH COMFORT CARE TOMORROW MORNING AFTER THE REST OF THE CHILDREN ARE ABLE TO SEE HER.
--- NOTE | 2020-10-03 12:11 | NUR ---
Placed Copy of DPOA and Living Will on Chart.
--- NOTE | 2020-10-03 19:30 | NUR ---
REPORT GIVEN TO PAMELA NAVARRETE
[2020-10-04] VITALS (394 sets, daily range): BP systolic 121–135; BP diastolic 66–72; PULSE 63–72; TEMP 99.6–101; O2SAT 54–100
[2020-10-04 05:46] LABS: ARTERIAL BLD GAS O2 SATURATION 94.6 % (92-100); ARTERIAL BLD GAS TCO2 CT 16.4; ARTERIAL BLOOD GAS BASE EXCESS -8.3 (-2-2); ARTERIAL BLOOD GAS HCO3 15.6 meq/L (22-26); ARTERIAL BLOOD GAS PCO2 26.3 mmHg (35-45); ARTERIAL BLOOD GAS PO2 76.2 mmHg (80-100); ARTERIAL BLOOD GAS pH 7.39 (7.35-7.45)
--- NOTE | 2020-10-04 10:30 | NUR ---
PT EXTUBATED TO COMFORT CARE PER FAMILY REQUEST. ON ROOM AIR.
--- NOTE | 2020-10-04 10:45 | NUR ---
and son, Syed, request to proceed with comfort care. Patient extubated to room air at approximately 1030. All drips stopped. Morphine and Ativan given per comfort care order set. Family brought into the room after she is made as comfortable as possible.
--- NOTE | 2020-10-04 13:07 | NUR ---
Call placed to [facility]. Patient will not be a candidate for donation due to dx of severe sepsis with recent elevation in WBC and Temp. They have authorized release of body to home when family is ready. Referral Number [id number]
--- NOTE | 2020-10-04 13:53 | NUR ---
PATIENT PASSES AT 1213; CONFIRMED BY PAMELA REID AND PAMELA MAHONEY; [facility] CONTACTED BY PAMELA NIELSON; FAMILY CHOOSES [facility]. THEY ARE CONTACTED AT THIS TIME TO COME GET THE BODY. JEOVANNY, SON, TAKES PATIENTS BELONGINGS HOME WITH HIM.
--- NOTE | 2020-10-04 14:43 | NUR ---
POST MORTEM CARE PERFORMED. CHEST TUBE ON RIGHT SIDE REMOVED; KASANDRA DRAIN REMOVED. BOTH CENTRAL LINES AND POOL CATHETER REMOVED.
--- NOTE | 2020-10-04 15:49 | NUR ---
[facility] HERE TO GET BODY OF PATIENT. COPY OF RECORD OF AND FACESHEET GIVEN TO THE HOME [facility].
== END 2020-10-04 15:50 | disposition expired | DRG 853 ==
LOC: COL.ER 15:26 → ICU 17:53 → SURG 17:53 → ICU 09-25 17:33 → SURG 10-04 15:50
PROVIDERS: Emergency Medicine; Internal Medicine Gastroenterology; Internal Medicine Pulmonary Disease; Internal Medicine Sleep Medicine; Physician Assistant; Surgery; ADMIT Internal Medicine
PROC: 5A2204Z Restoration of Cardiac Rhythm, Single (ICD-10-PCS; 2020-09-26)
PROC: 0W993ZZ Drainage of Right Pleural Cavity, Percutaneous Approach (ICD-10-PCS; 2020-09-26)
PROC: 5A1955Z Respiratory Ventilation, Greater than 96 Consecutive Hours (ICD-10-PCS; 2020-09-26)
PROC: 0FT40ZZ Resection of Gallbladder, Open Approach (ICD-10-PCS; 2020-09-26 12:45)
PROC: 0FJ44ZZ Inspection of Gallbladder, Percutaneous Endoscopic Approach (ICD-10-PCS; 2020-09-26 12:45)
PROC: 02HV33Z Insertion of Infusion Device into Superior Vena Cava, Percutaneous Approach (ICD-10-PCS; principal; 2020-10-02)
PROC: 05HM33Z Insertion of Infusion Device into Right Internal Jugular Vein, Percutaneous Approach (ICD-10-PCS; 2020-10-02)
DX: A41.9 Sepsis, unspecified organism (principal); K85.90 Acute pancreatitis without necrosis or infection, unspecified; J96.01 Acute respiratory failure with hypoxia; G93.41 Metabolic encephalopathy; E87.1 Hypo-osmolality and hyponatremia; N17.9 Acute kidney failure, unspecified; J90 Pleural effusion, not elsewhere classified; K56.7 Ileus, unspecified; E46 Unspecified protein-calorie malnutrition; K80.00 Calculus of gallbladder with acute cholecystitis without obstruction; R65.20 Severe sepsis without septic shock; E87.5 Hyperkalemia; E87.6 Hypokalemia; E83.51 Hypocalcemia; K21.9 Gastro-esophageal reflux disease without esophagitis; Z20.822 Contact with and (suspected) exposure to COVID-19; K44.9 Diaphragmatic hernia without obstruction or gangrene; Z51.5 Encounter for palliative care; I71.4 Abdominal aortic aneurysm, without rupture; M19.90 Unspecified osteoarthritis, unspecified site; E78.5 Hyperlipidemia, unspecified; Z66 Do not resuscitate; I48.91 Unspecified atrial fibrillation; Z79.82 Long term (current) use of aspirin; Z53.31 Laparoscopic surgical procedure converted to open procedure
CPT/HCPCS: 99223-AI; 99233-AI; 99239; A4314; A7041; C1751; C1892; C9113; J0282; J0330; J0610; J1160; J1450; J1650; J1885; J1940; J2060; J2185; J2212; J2270; J2370; J2405; J2543; J2704; J3010; J3370; J3475; J3480; J7030; J7040; J7050; J7060; J7120; J7121; P9047; Q9967